=== PATIENT | female | born 2000 | race African-American/Black ===

== ENCOUNTER 2024-05-09 15:44 | Emergency (ER) | payer OTHER ==
[~2024-05-09] VITALS: Ht 165.1 cm; Wt 45.4 kg
[2024-05-09 16:14] VITALS: BP 140/94; PULSE 92; RESP 20; TEMP 97.1; O2SAT 100
[2024-05-09 16:30] VITALS: O2SAT 98
[2024-05-09] MEDS: diphenhydrAMINE 50 MG/ML VIAL IVP ONE (17:04)
[2024-05-09] MEDS: METOCLOPRAMIDE 10 MG/2 ML INJ VIAL IVP ONE (17:04)
[2024-05-09] MEDS: NACL 0.9% 1,000 ML IV SCH (17:05)
[2024-05-09] MEDS: KETOROLAC 30 MG/ML VIAL IVP ONE (17:10)
[2024-05-09 17:45] LABS: BASOPHILS % (AUTO) 0.3 % (0.0-2.0); HEMATOCRIT 38.4 % (36-48); LYMPHOCYTES # (AUTO) 1.6 K/uL (2.5-16.5); LYMPHOCYTES % (AUTO) 20.3 % (20.5-51.1); MEAN CORPUSCULAR HEMOGLOBIN 26 pg (27-31); MEAN CORPUSCULAR HGB CONC 31 g/dL (33-37); MEAN CORPUSCULAR VOLUME 84.6 fL (80-94); MONOCYTES # (AUTO) 0.4 K/uL (0.8-1.0); MONOCYTES % (AUTO) 5.7 % (1.7-9.3); NEUTROPHILS # (AUTO) 5.7 K/uL (1.8-7.7); NEUTROPHILS % (AUTO) 73.7 % (42.2-75.2); PLATELET COUNT (AUTO) 213 K/uL (140-450); RED BLOOD CELL COUNT(AUTO) 4.54 MIL/uL (4.20-5.40); RED CELL DISTRIBUTION WIDTH 16.6 % (11.6-13.7); WHITE BLOOD COUNT (AUTO) 7.8 K/uL (4.8-10.8)
[2024-05-09 17:48] LABS: ANION GAP 24.5 (8-16); CALCIUM 9.5 mg/dL (8.5-10.1); CARBON DIOXIDE 18.8 mmol/L (21-32); CREATININE 0.9 mg/dL (0.6-1.3); POTASSIUM 3.3 mmol/L (3.5-5.1)
[2024-05-09 17:51] LABS: ALBUMIN 4.3 g/dL (3.4-5.0); BILIRUBIN,DIRECT 0.1 mg/dL (0.0-0.3); TOTAL BILIRUBIN 0.9 mg/dL (0.0-1.0); TOTAL PROTEIN, SERUM 8.2 g/dL (6.4-8.2)
[2024-05-09 18:54] LABS: APPEARANCE,URINE SL CLOUDY (CLEAR); BILIRUBIN,URINE NEGATIVE (NEGATIVE); BLOOD, URINE 3+ (NEGATIVE); COLOR,URINE ORANGE (YELLOW); LEUKOCYTE ESTERASE ,URINE NEGATIVE (NEGATIVE); NITRITE, URINE NEGATIVE (NEGATIVE); PH,URINE >=9.0 (5.0-9.0); PROTEIN,URINE 2+ (NEGATIVE); UGLUCOSE NEGATIVE (NEGATIVE)
[2024-05-09 19:05] LABS: BACTERIA,URINE FEW /HPF (None Seen); RBC,URINE TOO NUMEROUS TO COUN /HPF (0-5); SQUAMOUS EPITHELIAL CELL,UR 4-10 (MOD) /LPF (0-3 (FEW)); WBC,URINE 0-5 /HPF (0-5)
[2024-05-09 19:06] LABS: AMPHETAMINE, URINE NEGATIVE ng/ml (NEG <=1000); BARBITURATE, URINE NEGATIVE ng/ml (NEG <=200); BENZODIAZEPINE, URINE NEGATIVE ng/mL (NEG <=200); CANNABINOID, URINE POSITIVE ng/mL (NEG <=50); COCAINE, URINE NEGATIVE ng/mL (NEG <=300); OPIATE, URINE NEGATIVE ng/mL (NEG <=2000); PHENCYCLIDINE SCREEN,URINE NEGATIVE ng/mL (NEG <=25)
[2024-05-09] MEDS: HALOPERIDOL IM 5 MG/ML VIAL IM ONE (19:26)
[2024-05-09 19:57] VITALS: O2SAT 98
[2024-05-09] MEDS: ONDANSETRON 4 MG/2 ML VIAL IVP ONE (21:33)
[2024-05-09] MEDS: MORPHINE SULFATE 4 MG/ML SYR IVP ONE (21:33)
[2024-05-09] MEDS ORDERED: METO-485 PO (22:34)
[2024-05-09] MEDS ORDERED: BEN10 PO (22:34)
[2024-05-09] MEDS ORDERED: ACET-10509 PO (22:34)
[2024-05-09 22:42] VITALS: BP 110/87; PULSE 87; RESP 17; TEMP 98.1; O2SAT 99
[2024-05-10] MEDS ORDERED: ACET-8905 PO (21:34)
[2024-05-10] MEDS ORDERED: PROC-87 PO (21:34)
== END 2024-05-09 22:42 | disposition home or self-care (01) ==
LOC: MED 15:44
DX: E86.0 Dehydration (principal); K29.70 Gastritis, unspecified, without bleeding; E87.6 Hypokalemia; F12.90 Cannabis use, unspecified, uncomplicated; Z79.1 Long term (current) use of non-steroidal anti-inflammatories (NSAID); Z98.890 Other specified postprocedural states; Z79.899 Other long term (current) drug therapy
CPT/HCPCS: 36415; 74176; 76856; 80048; 80076; 80305; 81001; 81025; 83690; 85025; 93005; 93976; 96372; 96374; 96375; 99285; J1200; J1630; J1885; J2270; J2405; J2765; J7030; Q0092; 96361

== ENCOUNTER 2024-05-10 18:59 | Emergency (ER) | payer OTHER ==
[~2024-05-10] VITALS: Ht 165.1 cm; Wt 45.4 kg
[~2024-05-10 18:59] MED LIST: ACET-10509 PO; BEN10 PO; METO-485 PO
[2024-05-10 19:05] VITALS: BP 162/100; PULSE 89; RESP 20; TEMP 98.1; O2SAT 100
[2024-05-10 19:27] VITALS: O2SAT 98
[2024-05-10] MEDS: KETOROLAC 60 MG/2 ML VIAL IM ONE (19:45)
[2024-05-10] MEDS: HALOPERIDOL IM 5 MG/ML VIAL IM ONE (19:45)
[2024-05-10] MEDS: NACL 0.9% 1,000 ML IV ONE (20:28)
[2024-05-10] MEDS: PROCHLORPERAZINE 10 MG/2 ML VIAL IVP ONE (20:31)
[2024-05-10] MEDS: diphenhydrAMINE 50 MG/ML VIAL IVP ONE (20:32)
[2024-05-10 20:42] VITALS: O2SAT 100
[2024-05-10] MEDS ORDERED: ACET-8905 PO (21:34)
[2024-05-10] MEDS ORDERED: PROC-87 PO (21:34)
[2024-05-10] MEDS: MORPHINE SULFATE 4 MG/ML SYR IVP ONE (21:50)
[2024-05-10 21:56] VITALS: BP 153/100; PULSE 90; RESP 16; TEMP 98.2; O2SAT 98
== END 2024-05-10 21:56 | disposition home or self-care (01) ==
LOC: MED 18:59
DX: R10.13 Epigastric pain (principal); R11.2 Nausea with vomiting, unspecified; R03.0 Elevated blood-pressure reading, without diagnosis of hypertension; Z98.890 Other specified postprocedural states; Z79.1 Long term (current) use of non-steroidal anti-inflammatories (NSAID); Z79.899 Other long term (current) drug therapy
CPT/HCPCS: 81002; 81025; 96361; 96372; 96374; 96375; 99284; J0780; J1200; J1630; J1885; J2270; J7030

== ENCOUNTER 2024-05-16 14:30 | Observation (INO) | payer OTHER ==
[~2024-05-16] VITALS: Ht 167.6 cm; Wt 49.9 kg
[~2024-05-16 14:30] MED LIST changes: +ACET-8905 PO; +PROC-87 PO
[2024-05-16 14:46] VITALS: BP 153/108; PULSE 102; RESP 20; TEMP 97.3; O2SAT 99
[2024-05-16] MEDS: HALOPERIDOL IM 5 MG/ML VIAL IM ONE (15:02)
[2024-05-16] MEDS ORDERED: KETOROLAC 60 MG/2 ML VIAL IM ONE (15:25)
[2024-05-16] MEDS: NACL 0.9% 1,000 ML IV ONE (15:32)
[2024-05-16] MEDS: diphenhydrAMINE 50 MG/ML VIAL IVP ONE (15:41)
[2024-05-16] MEDS: KETOROLAC 30 MG/ML VIAL IVP ONE (15:41)
[2024-05-16] MEDS: METOCLOPRAMIDE 10 MG/2 ML INJ VIAL IVP ONE (15:41)
[2024-05-16 16:58] LABS: BASOPHILS % (AUTO) 0.1 % (0.0-2.0); HEMATOCRIT 38.2 % (36-48); HEMOGLOBIN 12.3 g/dL (12.0-16.0); LYMPHOCYTES # (AUTO) 0.4 K/uL (2.5-16.5); LYMPHOCYTES % (AUTO) 4.1 % (20.5-51.1); MEAN CORPUSCULAR HEMOGLOBIN 26 pg (27-31); MEAN CORPUSCULAR HGB CONC 32 g/dL (33-37); MEAN CORPUSCULAR VOLUME 81.8 fL (80-94); MONOCYTES # (AUTO) 0.5 K/uL (0.8-1.0); MONOCYTES % (AUTO) 5.8 % (1.7-9.3); PLATELET COUNT (AUTO) 211 K/uL (140-450); RED BLOOD CELL COUNT(AUTO) 4.67 MIL/uL (4.20-5.40); RED CELL DISTRIBUTION WIDTH 15.6 % (11.6-13.7); WHITE BLOOD COUNT (AUTO) 8.9 K/uL (4.8-10.8)
[2024-05-16] MEDS: MORPHINE SULFATE 4 MG/ML SYR IVP ONE (16:58)
[2024-05-16 17:09] VITALS: O2SAT 98
[2024-05-16 17:21] LABS: ANION GAP 15.3 (8-16); CALCIUM 8.6 mg/dL (8.5-10.1); CARBON DIOXIDE 24.5 mmol/L (21-32); CREATININE 0.7 mg/dL (0.6-1.3)
[2024-05-16 17:25] LABS: POTASSIUM 2.8 mmol/L (3.5-5.1)
[2024-05-16 17:27] LABS: ALBUMIN 3.9 g/dL (3.4-5.0); BILIRUBIN,DIRECT 0.2 mg/dL (0.0-0.3); TOTAL PROTEIN, SERUM 7.3 g/dL (6.4-8.2)
[2024-05-16] MEDS ORDERED: ACETAMINOPHEN 325 MG TAB PO PRN (17:45)
[2024-05-16] MEDS: KCL 20 MEQ IN 100 mL PREMIX 100 ML IV ONE (18:35)
[2024-05-16] MEDS: NACL 0.9% 1,000 ML IV SCH (18:36)
[2024-05-16 20:59] VITALS: O2SAT 98
[2024-05-16 23:15] VITALS: PULSE 82; RESP 19; O2SAT 99
[2024-05-17] VITALS: BP 161/94; PULSE 76; PULSE 82; RESP 19; TEMP 97.4; O2SAT 99
[2024-05-17] MEDS: HYDROcodone/APAP 5/325 MG 1 TAB TAB PO PRN (01:02)
[2024-05-17 04:00] VITALS: BP 121/81; PULSE 72; PULSE 88; RESP 16; TEMP 98.6; O2SAT 100
[2024-05-17 07:31] LABS: BASOPHILS % (AUTO) 0.1 % (0.0-2.0); HEMATOCRIT 35.4 % (36-48); HEMOGLOBIN 11.6 g/dL (12.0-16.0); LYMPHOCYTES # (AUTO) 1.1 K/uL (2.5-16.5); LYMPHOCYTES % (AUTO) 13.6 % (20.5-51.1); MEAN CORPUSCULAR HEMOGLOBIN 27 pg (27-31); MEAN CORPUSCULAR HGB CONC 33 g/dL (33-37); MONOCYTES # (AUTO) 0.6 K/uL (0.8-1.0); MONOCYTES % (AUTO) 7.6 % (1.7-9.3); NEUTROPHILS # (AUTO) 6.5 K/uL (1.8-7.7); NEUTROPHILS % (AUTO) 78.7 % (42.2-75.2); PLATELET COUNT (AUTO) 235 K/uL (140-450); RED BLOOD CELL COUNT(AUTO) 4.32 MIL/uL (4.20-5.40); RED CELL DISTRIBUTION WIDTH 16.2 % (11.6-13.7); WHITE BLOOD COUNT (AUTO) 8.3 K/uL (4.8-10.8)
[2024-05-17 08:00] VITALS: BP 113/76; PULSE 69; PULSE 83; RESP 18; TEMP 99; O2SAT 100
[2024-05-17 08:00] LABS: ALBUMIN 3.7 g/dL (3.4-5.0); ANION GAP 16.1 (8-16); CARBON DIOXIDE 24.1 mmol/L (21-32); CREATININE 0.7 mg/dL (0.6-1.3); MAGNESIUM 1.7 mg/dL (1.8-2.4); POTASSIUM 3.2 mmol/L (3.5-5.1); TOTAL BILIRUBIN 0.9 mg/dL (0.0-1.0)
[2024-05-17 12:00] VITALS: BP 125/86; PULSE 73; PULSE 78; RESP 20; TEMP 98.8; O2SAT 100
[2024-05-17] MEDS: POTASSIUM CHLORIDE 10 MEQ TABER PO SCH (12:18)
[2024-05-17] MEDS ORDERED: ACET-9525 PO ×2 (14:22→14:52)
[2024-05-17] MEDS ORDERED: METO-485 PO (14:22)
[2024-05-17] MEDS ORDERED: POTA10TA70 PO (14:27)
[2024-05-17] MEDS: ONDANSETRON 4 MG/2 ML VIAL IVP PRN (14:31)
[2024-05-17 14:55] VITALS: BP 125/86; PULSE 78; RESP 20; TEMP 98.8
[2024-05-17] MEDS ORDERED: MEDS-TO-BEDS MC SCH (21:00)
== END 2024-05-17 16:20 | disposition home or self-care (01) ==
LOC: MED 14:30 → MTU 18:34
PROVIDERS: ADMIT Hospitalist; ATTEND Hospitalist
DX: R11.2 Nausea with vomiting, unspecified (principal); R10.13 Epigastric pain; E87.6 Hypokalemia; F12.90 Cannabis use, unspecified, uncomplicated; Z79.899 Other long term (current) drug therapy
CPT/HCPCS: 36415; 80048; 80053; 80076; 83690; 83735; 85025; 87081; 96361; 96365; 96366; 96372; 96375; 99284; G0378; J1200; J1630; J1885; J2270; J2405; J2765; J3480